=== PATIENT | male | born 1965 | race Caucasian/White ===

== ENCOUNTER 2019-02-12 09:34 | Day surgery (SDC) | payer BC ==
[~2019-02-12] VITALS: Ht 177.8 cm; Wt 81.0 kg
[~2019-02-12 09:34] MED LIST: ALTACE 10MG TAB10 MG PO; HYGROTON50 MG PO; KOMBIGLYZE XR 11 TER PO; LIPITOR20 MG PO; PRIL40 PO
[2019-02-12] MEDS ORDERED: NORVASC 10MG10 MG PO (10:15)
[2019-02-12] MEDS ORDERED: DYAZIDE 25 MG-31 CAP PO (10:16)
[2019-02-12] MEDS ORDERED: GLUCOTROL 5M5 MG/TAB PO (10:16)
[2019-02-12 10:36] VITALS: BP 132/87; PULSE 62; TEMP 97.4
[2019-02-12 11:30] VITALS: BP 121/97; PULSE 86; TEMP 97.9
--- NOTE | 2019-02-12 11:30 | NUR ---
Pt returned via cart to [facility]. Ambulated with SBA to recliner in bay. , Bridget, present in room. Pt denies wanting to eat or drink at this time. Denies needs or concerns. Call light in reach. VSS-see flowsheet.
[2019-02-12 11:45] VITALS: BP 124/84; PULSE 72
[2019-02-12 12:00] VITALS: BP 124/83; PULSE 67
[2019-02-12 12:15] VITALS: BP 121/85; PULSE 65
--- NOTE | 2019-02-12 12:26 | NUR ---
Pt tolerated saltines and water. Dr Li in to visit post procedure. VS remain stable. IV removed and pressure dressing applied to site. Discharge teaching completed, pt and verbalized understanding. Taken via wheelchair to private vehicle for dc home with to drive.
== END 2019-02-12 12:27 | disposition home or self-care (01) ==
LOC: SDCO 09:34
DX: K21.9 Gastro-esophageal reflux disease without esophagitis (principal); K22.70 Barrett's esophagus without dysplasia; K44.9 Diaphragmatic hernia without obstruction or gangrene; Z88.0 Allergy status to penicillin; Z79.82 Long term (current) use of aspirin; Z79.84 Long term (current) use of oral hypoglycemic drugs; E11.9 Type 2 diabetes mellitus without complications; D64.9 Anemia, unspecified
CPT/HCPCS: J2250; J3010; J7030

== ENCOUNTER → 2019-04-07 | Outpatient (CLI) | payer BC ==
[2019-04-07] VITALS (11 sets, daily range): BP systolic 119–152; BP diastolic 65–96; PULSE 59–66
[~2019-04-07] VITALS: Ht 177.8 cm; Wt 82.3 kg
[~2019-04-07] MED LIST changes: +DYAZIDE 25 MG-31 CAP PO; +GLUCOTROL 5M5 MG/TAB PO; +NORVASC 10MG10 MG PO
[2019-04-07 09:57] LABS: INR 1.1 (0.8-3.0); PROTHROMBIN TIME 12.3 SECONDS (9.7-12.8)
--- NOTE | 2019-04-07 10:35 | NUR ---
Pt to ct ambulatory. Pt positioned in supine position on ct table. Monitors applied.
--- NOTE | 2019-04-07 10:55 | NUR ---
Specimen obtained and placed in formalin by Dr Chambers. Specimen labeled.
== END ==
LOC: COL.RAD 09:24
PROVIDERS: Internal Medicine Gastroenterology
DX: K76.0 Fatty (change of) liver, not elsewhere classified (principal)

== ENCOUNTER → 2019-05-31 | Outpatient (CLI) | payer BC | LOC: DIA.ED 10:10 | DX: E11.9 Type 2 diabetes mellitus without complications (principal); Z79.84 Long term (current) use of oral hypoglycemic drugs; E78.5 Hyperlipidemia, unspecified; I10 Essential (primary) hypertension | CPT/HCPCS: G0108 ==

== ENCOUNTER → 2019-06-07 | Outpatient (CLI) | payer BC | LOC: DIA.ED 12:46 | DX: E11.9 Type 2 diabetes mellitus without complications (principal); Z79.84 Long term (current) use of oral hypoglycemic drugs; E78.5 Hyperlipidemia, unspecified; I10 Essential (primary) hypertension | CPT/HCPCS: G0108 ==

== ENCOUNTER 2021-02-21 09:53 | Emergency (ER) | payer BC ==
[~2021-02-21] VITALS: Ht 177.8 cm; Wt 79.5 kg
[2021-02-21 10:13] VITALS: TEMP 98.3
[2021-02-21] MEDS ORDERED: BYDUREON B2 MG/0.85 (10:29)
[2021-02-21] MEDS ORDERED: CIPRO 500MG TA500 MG PO (10:31)
[2021-02-21] MEDS ORDERED: FLAGYL500 MG PO (10:31)
[2021-02-21 10:38] LABS: BASO # 0.1 K/mm3 (0.0-0.2); BASO % 0.8 % (0.0-2.0); EOS # 0.2 K/mm3 (0.0-0.7); EOS % 2.2 % (0-4.0); GRAN # 5.4 K/mm3 (1.4-6.5); GRAN % 65.2 % (42.2-75.2); HEMATOCRIT 45.2 % (42.0-52.0); HEMOGLOBIN 15.6 g/dl (13.5-18.0); LYMPH # 1.8 K/mm3 (1.2-3.4); LYMPH % 21.3 % (20.0-51.0); MEAN CELL VOLUME 77 fl (80.0-100.0); MEAN CORPUSCULAR HEMOGLOBIN 27 pg (27.0-31.0); MEAN CORPUSCULAR HGB CONC 35 g/dl (33.0-37.0); MEAN PLATELET VOLUME 11.2 fl (7.4-10.4); MONO # 0.9 K/mm3 (0.1-0.6); MONO % 10.4 % (1.7-9.3); PLATELET COUNT 205 K/mm3 (130-400); RED BLOOD COUNT 5.84 M/mm3 (4.20-5.60); REDCELL DISTRIBUTION WIDTH-CV 14.6 % (11.5-14.5)
[2021-02-21 11:03] LABS: ALBUMIN 4.4 gm/dL (3.5-5.0); BILIRUBIN,TOTAL 1.3 mg/dL (0.2-1.2); C-REACTIVE PROTEIN 0.91 mg/dL (0.00-0.50); CREATININE, serum 1.02 mg/dL (0.72-1.25); POTASSIUM 3.5 mmol/L (3.5-4.5); TOTAL PROTEIN 8.1 gm/dL (6.2-8.1)
[2021-02-21 13:59] VITALS: BP 144/99; PULSE 74
[2021-02-21] MEDS ORDERED: NORCO 325 MG-51 TAB PO ×3 (14:01→15:07)
[2021-02-21] MEDS ORDERED: ZOFRAN ODT4 MG PO ×3 (14:01→15:07)
== END 2021-02-21 14:00 | disposition home or self-care (01) ==
LOC: COL.ER 09:53
PROVIDERS: Emergency Medicine
DX: R10.32 Left lower quadrant pain (principal); R11.2 Nausea with vomiting, unspecified; E11.9 Type 2 diabetes mellitus without complications; I10 Essential (primary) hypertension; Z88.0 Allergy status to penicillin; Z79.84 Long term (current) use of oral hypoglycemic drugs; Z79.899 Other long term (current) drug therapy
CPT/HCPCS: J2405; J2550; J7030

== ENCOUNTER 2021-03-07 09:50 | Day surgery (SDC) | payer BC ==
[~2021-03-07] VITALS: Ht 177.8 cm; Wt 77.3 kg
[~2021-03-07 09:50] MED LIST changes: +BYDUREON B2 MG/0.85 SQ; +CIPRO 500MG TA500 MG PO; +FLAGYL500 MG PO; +NORCO 325 MG-51 TAB PO; +ZOFRAN ODT4 MG PO
[2021-03-07 10:12] VITALS: BP 133/79; PULSE 69; TEMP 97.1
[2021-03-07] MEDS ORDERED: GLUCOPHAGE500 MG/TAB PO (10:15)
[2021-03-07] MEDS ORDERED: GLUCOTROL10 MG PO (10:15)
[2021-03-07] MEDS ORDERED: NORCO 325 MG-51 TAB PO (13:59)
[2021-03-07 14:35] VITALS: BP 136/79; PULSE 71; TEMP 97.2
--- NOTE | 2021-03-07 14:35 | NUR ---
The patient arrived back to [facility] from the recovery room at this time. The patient appears alert and oriented and denies any pain or nausea at this time. The patient has three bandaids to his abdomen that appear clean, dry and intact. The patient has some ice chips and water and appears to be tolerating bothw well. The patient's is at his bedside. Post operative vital signs were started at this time. Call light is within reach. Will continue to monitor the patient.
[2021-03-07 14:50] VITALS: BP 138/78; PULSE 63
--- NOTE | 2021-03-07 14:50 | NUR ---
The patient appears to be tolerating the water and ice well and agrees to try some jello at this time. Vital signs appear stable. Call light is within reach. Will continue to monitor the patient.
[2021-03-07 15:05] VITALS: BP 139/80; PULSE 68
--- NOTE | 2021-03-07 15:10 | NUR ---
The patient ambulated to the bathroom with the stand by assistance of one nurse and appeared to tolerate the activity well. The patient voided without difficulty and voices a desire to be discharged home.
--- NOTE | 2021-03-07 15:20 | NUR ---
Discharge instructions were reviewed with the patient and his at this time. They both verbalized understanding and have no questions for the nurse at this time. The patient's IV to his right hand was removed and a pressure dressing was applied to the site. The patient is dressed and ready to be escorted out.
--- NOTE | 2021-03-07 15:30 | NUR ---
The patient was escorted out via wheelchair to a private vehicle by TAYLOR Arceo. The patient's belongings and discharge paperwork were sent him. The patient's is present to drive him home.
== END 2021-03-07 15:30 | disposition home or self-care (01) ==
LOC: SDCO 09:50
DX: K80.10 Calculus of gallbladder with chronic cholecystitis without obstruction (principal); Z79.84 Long term (current) use of oral hypoglycemic drugs; Z79.899 Other long term (current) drug therapy; I10 Essential (primary) hypertension; E11.9 Type 2 diabetes mellitus without complications; E78.00 Pure hypercholesterolemia, unspecified; E78.5 Hyperlipidemia, unspecified
CPT/HCPCS: J0330; J0690; J1100; J1885; J2250; J2405; J2704; J3010; J7120; Q9967